=== PATIENT | male | born 1995 | race Caucasian/White ===

== ENCOUNTER 2025-06-12 11:22 | Emergency (ER) | payer MEDICAID ==
[~2025-06-12] VITALS: Ht 185.4 cm; Wt 81.8 kg
[2025-06-12 11:24] VITALS: BP 170/105; PULSE 110; RESP 18; TEMP 97.9; O2SAT 99
--- NOTE | 2025-06-12 11:48 | Physician Documentation ---
History of Present Illness ~ Chief Complaint: Medical Clearance Stated Complaint: MED CLEARANCE Time Seen by MD: 11:29 [facility] 29-year-old male presents to the ED after being ill last week. States his occupation requires a doctor's note so he can go back to work after being ill for three days. Says that he began to feel better over the weekend and feels great now thinks that he probably had some sort of viral illness tested negative for flu and COVID Day of Onset: Jun 12, 2025 Medication Reconciliation Allergies: Coded Allergies: No Known Allergies (Unverified , 06/12/25) Review of Systems All Other Systems at this time: Reviewed and Negative ROS As stated above in the HPI, otherwise all systems are reviewed and negative. Physical Exam Vital Signs: Temperature: 97.9, Source: Temporal, Heart Rate: 110, Respiratory Rate: 18, BP: 170/105, Pulse Oximetry: 99, Weight: 81.820 Oxygen Flow Rate: 0 Physical Exam General: Alert, no apparent distress. HEENT: PERRL, EOMI, no injection, moist mucous membranes. Neck: Full range of motion. Respiratory: Lungs clear, no respiratory distress. Chest: No accessory muscle use. Cardiovascular: Regular rate and rhythm, no murmurs. Gastrointestinal: Soft, nontender, nondistended. Bowels sounds present. Extremities: Normal range of motion, no deformity. Neurologic: Oriented x4. Psychiatric: Normal mood and affect. Skin: Normal color, warm and dry. No edema, no ecchymosis. Progress Results/Orders Results/Orders Vital Signs 06/12/25 11:24 Temp 97.9 Pulse 110 Resp 18 B/P (MAP) 170/105 Pulse Ox 99 O2 Flow Rate 0 Medical Decision Making Additional information obtaine: old records Findings Patient cleared for work as he presents healthy and not acutely ill. Differential Dx:Considerations: Include: Intoxication-Alcohol, Intoxication- Other drug, Personality disorder, Substance abuse disorder, Acute delirium, Closed head injury, Cervical spine injury, Skull fracture, Fracture(s), Abrasion, Contusion, Foreign body, Hematoma, Laceration, Alcohol withdrawl syndrom, Encephalopathy, Hepatitis, Medically stable, Other Departure Disposition: HOME / SELF CARE / HOMELESS Impression: Primary Impression: General medical exam Condition: Stable Discharge Instructions: Medical Screening Exam Additional Instructions: Medically cleared for work Referrals: NO PRIMARY CARE PROVIDER (PCP) Signature Scribe Signature: t Attestation: Scribed for Jagjit Torrez Np by Jagjit Ingram NP . 06/12/25 18:02 JAGJIT TORREZ NP Jun 12, 2025 11:48
== END 2025-06-12 11:57 | disposition home or self-care (01) ==
LOC: ER 11:24
DX: Z00.00 Encounter for general adult medical examination without abnormal findings (principal)
CPT/HCPCS: 99282